=== PATIENT | male | born 1945 | race Caucasian/White ===

== ENCOUNTER 2024-10-31 03:01 | Observation (INO) | payer OTHER ==
[2024-10-31] MEDS ORDERED: DIPHTH,PERTUSS(ACELL),TET 0.5 ML DISP.SYRIN IM ONE (03:21)
[2024-10-31] MEDS: DIPHTH,PERTUSS(ACELL),TET 0.5 ML DISP.SYRIN IM ONE (03:25)
[2024-10-31] MEDS: ACETAMINOPHEN 500 MG TABLET (FP) PO ONE (03:25)
[2024-10-31] MEDS ORDERED: ACETAMINOPHEN 500 MG TABLET (FP) ONE (04:05)
[2024-10-31] MEDS ORDERED: ALBUTEROL SO4 2.5/IPRATROPIUM 0.5 INH SOL 3 ML VIAL.NEB. NEB ONE (04:57)
[2024-10-31] MEDS ORDERED: methylPREDNISolone NA SUCC 125 MG/2 ML VIAL ONE (04:58)
[2024-10-31] MEDS: methylPREDNISolone NA SUCC 125 MG/2 ML VIAL IVPUSH ONE (05:03)
[2024-10-31] MEDS: ALBUTEROL SO4 2.5/IPRATROPIUM 0.5 INH SOL 3 ML VIAL.NEB. NEB ONE (05:03)
[2024-10-31] MEDS: ALBUTEROL SO4 2.5/IPRATROPIUM 0.5 INH SOL 3 ML VIAL.NEB. NEB SCH (05:03)
[2024-10-31] MEDS: DEXAMETHASONE SOD PHOSPHATE 10 MG/1 ML VIAL IVPUSH ONE (05:03)
[2024-10-31 05:26] LABS: URINE APPEARANCE CLEAR; URINE BILIRUBIN NEGATIVE (NEGATIVE); URINE COLOR YELLOW; URINE GLUCOSE (UA) NEGATIVE (NEGATIVE); URINE KETONE NEGATIVE (NEGATIVE); URINE LEUK ESTERASE NEGATIVE (NEGATIVE); URINE NITRITE NEGATIVE (NEGATIVE); URINE PROTEIN NEGATIVE (NEGATIVE); URINE UROBILINOGEN 0.2 mg/dL (0.2-1.0)
[2024-10-31 05:29] LABS: POTASSIUM 4.4 mmol/L (3.5-5.1)
[2024-10-31 05:30] LABS: CALCIUM 8.7 mg/dL (8.5-10.1)
[2024-10-31 05:31] LABS: ALBUMIN 3.6 g/dl (3.4-5.0); BASO % 1.1 % (0-2.0); BLOOD UREA NITROGEN 10.9 mg/dL (7-18); EOS % 1.1 % (0-4.5); HEMATOCRIT 46.7 % (35.4-49); HEMOGLOBIN 15.7 GM/dL (11.7-16.9); LYMPH % 19.4 % (8-40); MAGNESIUM 2.2 mg/dL (1.8-2.4); MCH 33.1 pg (25.7-33.7); MCHC 33.6 g/dl (32.0-35.9); MEAN CELL VOLUME 98.6 fl (80-96); MEAN PLT VOLUME 8.9 fl (7.5-11.1); NEUT % 70.4 % (42.8-82.8); PLATELET COUNT 323 10^3/uL (134-434); RBC 4.74 M/mm3 (4.00-5.60); RDW 14.1 % (11.9-15.9); WHITE BLOOD COUNT 12.1 K/mm3 (4.0-10.0)
[2024-10-31 05:34] LABS: CREATININE 0.9 mg/dL (0.55-1.3)
[2024-10-31 05:39] LABS: N-TERMINAL BNP 259.6 pg/ml (5-450)
[2024-10-31] MEDS ORDERED: CLINDAMYCIN 600MG PREMIX IVPB 600 MG/50 ML BAG IVPB ONE ×2 (06:05→14:30)
[2024-10-31] MEDS: CLINDAMYCIN 600MG PREMIX IVPB 600 MG/50 ML BAG IVPB ONE (06:18)
[2024-10-31 06:27] LABS: HIV INTERPRETATION NEGATIVE (NEGATIVE)
[2024-10-31 07:02] LABS: BILIRUBIN,TOTAL 0.5 mg/dL (0.2-1)
[2024-10-31] MEDS ORDERED: ACETAMINOPHEN 325 MG TABLET (FP) ONE (11:27)
[2024-10-31] MEDS ORDERED: ALBUTEROL SO4 0.083% IH SOL 2.5 MG/3 ML VIAL.NEB. NEB ONE ×2 (11:27→16:27)
[2024-10-31] MEDS: ALBUTEROL SO4 0.083% IH SOL 2.5 MG/3 ML VIAL.NEB. NEB PRN (11:30)
[2024-10-31] MEDS: ACETAMINOPHEN 325 MG TABLET (FP) PO PRN (11:30)
[2024-10-31] MEDS: CLINDAMYCIN 600MG PREMIX IVPB 600 MG/50 ML BAG IVPB SCH (14:39)
[2024-10-31] MEDS ORDERED: predniSONE 20 MG TABLET (UD) ONE (16:27)
[2024-10-31] MEDS: predniSONE 20 MG TABLET (UD) PO SCH (16:39)
[2024-10-31 17:34] LABS: PHOSPHOROUS 2.5 mg/dL (2.5-4.9)
[2024-10-31 17:38] LABS: N-TERMINAL BNP 276.9 pg/ml (5-450)
[2024-10-31] MEDS: BUDESONIDE/FORMETEROL FUMARATE 80/4.5 mcg INHALER IH SCH (22:44)
[2024-10-31] MEDS: PHENYLEPHRINE 0.25% NASAL SPRAY 15 ML BOTTLE NS SCH (22:44)
[2024-10-31] MEDS: guaiFENesin 600 MG TABLET.ER (FP) PO SCH (22:45)
[2024-11-01 07:26] LABS: HEMATOCRIT 42.5 % (35.4-49); HEMOGLOBIN 14.1 GM/dL (11.7-16.9); MCH 32.7 pg (25.7-33.7); MCHC 33.3 g/dl (32.0-35.9); MEAN CELL VOLUME 98.2 fl (80-96); MEAN PLT VOLUME 8.9 fl (7.5-11.1); PLATELET COUNT 298 10^3/uL (134-434); RBC 4.33 M/mm3 (4.00-5.60)
[2024-11-01 07:55] LABS: POTASSIUM 4.5 mmol/L (3.5-5.1)
[2024-11-01 08:09] LABS: ALBUMIN 3.2 g/dl (3.4-5.0); CALCIUM 8.5 mg/dL (8.5-10.1)
[2024-11-01 08:10] LABS: BLOOD UREA NITROGEN 23.7 mg/dL (7-18)
[2024-11-01 08:14] LABS: BILIRUBIN,TOTAL 0.4 mg/dL (0.2-1); TOT PROT 6.5 g/dl (6.4-8.2)
[2024-11-01 09:26] LABS: ANISOCYTOSIS 1+; MACROCYTOSIS 0
[2024-11-01] MEDS ORDERED: predniSONE 20 MG TABLET (UD) PO SCH (10:49)
[2024-11-01] MEDS ORDERED: ALBUTEROL SO4 0.083% IH SOL 2.5 MG/3 ML VIAL.NEB. NEB ONE (13:03)
[2024-11-01] MEDS ORDERED: ALBUTEROL SO4 0.083% IH SOL 2.5 MG/3 ML VIAL.NEB. NEB PRN (15:41)
[2024-11-01 15:57] VITALS: BMI 34.7
[2024-11-01] MEDS ORDERED: AMOX TR/POT CLAV 500MG/125MG TABLETS (FP) PO SCH (17:30)
[2024-11-01] MEDS: guaiFENesin 600 MG TABLET.ER (FP) PO SCH (21:15)
[2024-11-01] MEDS: BUDESONIDE/FORMETEROL FUMARATE 80/4.5 mcg INHALER IH SCH (22:27)
[2024-11-01] MEDS: PHENYLEPHRINE 0.25% NASAL SPRAY 15 ML BOTTLE NS SCH (22:36)
[2024-11-02 09:17] LABS: BASO % 0.2 % (0-2.0); HEMATOCRIT 42.3 % (35.4-49); MCH 32.7 pg (25.7-33.7); MCHC 33.2 g/dl (32.0-35.9); MEAN CELL VOLUME 98.5 fl (80-96); MEAN PLT VOLUME 8.8 fl (7.5-11.1); MONO % 6.5 % (3.8-10.2); NEUT % 77.3 % (42.8-82.8); PLATELET COUNT 291 10^3/uL (134-434); RBC 4.29 M/mm3 (4.00-5.60); RDW 14.3 % (11.9-15.9); WHITE BLOOD COUNT 15.9 K/mm3 (4.0-10.0)
[2024-11-02 09:33] LABS: POTASSIUM 4.2 mmol/L (3.5-5.1)
[2024-11-02] MEDS: ACETAMINOPHEN 325 MG TABLET (FP) PO PRN (09:39)
[2024-11-02] MEDS: predniSONE 20 MG TABLET (UD) PO SCH (09:40)
[2024-11-02 09:43] LABS: BLOOD UREA NITROGEN 22.3 mg/dL (7-18)
[2024-11-02 09:46] LABS: CREATININE 0.8 mg/dL (0.55-1.3)
[2024-11-03] MEDS: LEVOTHYROXINE NA 88 MCG TABLET (FP) PO SCH (06:08)
[2024-11-03 09:12] VITALS: BP 142/79; PULSE 65; RESP 18; TEMP 98.4
[2024-11-03] MEDS: CYANOCOBALAMIN 1,000 MCG TABLET (FP) PO SCH (09:34)
[2024-11-03] MEDS ORDERED: DONEPEZIL HCL 10 MG TABLET (FP) PO SCH (22:00)
== END 2024-11-03 14:42 | disposition home or self-care (01) ==
LOC: JER 03:01 → JERBED 05:12 → J5S 11-01 15:30
PROVIDERS: ADMIT Internal Medicine; ATTEND Internal Medicine
PROC: 3E0F7GC Introduction of Other Therapeutic Substance into Respiratory Tract, Via Natural or Artificial Opening (ICD-10-PCS; principal; 2024-10-31)
PROC: 3E03329 Introduction of Other Anti-infective into Peripheral Vein, Percutaneous Approach (ICD-10-PCS; 2024-10-31)
PROC: 3E0234Z Introduction of Serum, Toxoid and Vaccine into Muscle, Percutaneous Approach (ICD-10-PCS; 2024-10-31)
DX: S02.2XXA Fracture of nasal bones, initial encounter for closed fracture (principal); W06.XXXA Fall from bed, initial encounter; Y93.84 Activity, sleeping; Y92.092 Bedroom in other non-institutional residence as the place of occurrence of the external cause; J45.909 Unspecified asthma, uncomplicated; E66.3 Overweight; Z23 Encounter for immunization
CPT/HCPCS: 0241U-QW; 36415; 70450-TC; 70486-TC; 71045-TC-FY; 72125-TC; 80048; 80053; 80061; 81003; 83036; 83735; 83880; 84100; 84443; 84484; 85025; 86803; 87086; 87389; 87635; 90471; 90715; 93005; 93010; 93306-TC; 94640; 96365; 96366; 96375; 97116-GP; 97161-GP; 99285-25; G0378

== ENCOUNTER 2024-12-25 14:07 | Emergency (ER) | payer OTHER ==
[2024-12-25 14:18] VITALS: BP 157/71; PULSE 70; RESP 22; TEMP 98; BMI 35.0
[2024-12-25] MEDS ORDERED: ALBUTEROL SO4 2.5/IPRATROPIUM 0.5 INH SOL 3 ML VIAL.NEB. NEB ONE (15:18)
[2024-12-25] MEDS: ALBUTEROL SO4 2.5/IPRATROPIUM 0.5 INH SOL 3 ML VIAL.NEB. NEB ONE (15:27)
== END 2024-12-25 19:32 | disposition home or self-care (01) ==
LOC: JER 14:07
PROC: 3E0F7GC Introduction of Other Therapeutic Substance into Respiratory Tract, Via Natural or Artificial Opening (ICD-10-PCS; principal; 2024-12-25)
DX: J45.901 Unspecified asthma with (acute) exacerbation (principal); R06.02 Shortness of breath
CPT/HCPCS: 0241U-QW; 71046-TC-FY; 93005; 93010; 99285-25